=== PATIENT | female | born 1940 | race Two or more races ===

== ENCOUNTER 2017-07-16 08:53 | Outpatient (CLI) | payer OTHER ==
[~2017-07-16] VITALS: Ht 152.4 cm; Wt 67.6 kg
[~2017-07-16 08:53] MED LIST: DOLOGEN CAPLET1 EACH PO; NORVASC5 MG; PRINIVIL5 MG; SYNTHROID100 MCG
== END 2017-07-16 09:15 | disposition home or self-care (01) ==
LOC: OFIC 805 08:53
DX: J34.2 Deviated nasal septum (principal); J31.0 Chronic rhinitis; J34.3 Hypertrophy of nasal turbinates; H93.13 Tinnitus, bilateral

== ENCOUNTER 2019-06-23 09:31 | Outpatient (CLI) | payer OTHER | END 2019-06-23 09:35 | disposition home or self-care (01) | LOC: SONOGRAMA 09:31 → MAMO-SONO 09:45 | DX: M25.511 Pain in right shoulder (principal) ==

== ENCOUNTER 2019-07-03 11:59 | Outpatient (CLI) | payer OTHER | END 2019-07-04 15:43 | disposition home or self-care (01) | LOC: MAMO-SONO 11:59 | DX: Z12.31 Encounter for screening mammogram for malignant neoplasm of breast (principal); Z87.898 Personal history of other specified conditions; N64.4 Mastodynia; N63.10 Unspecified lump in the right breast, unspecified quadrant; N63.20 Unspecified lump in the left breast, unspecified quadrant ==

== ENCOUNTER 2019-07-03 12:39 | Outpatient (CLI) | payer OTHER | END 2019-07-03 13:20 | disposition home or self-care (01) | LOC: NUCLEAR 12:39 | DX: M81.0 Age-related osteoporosis without current pathological fracture (principal); Z13.820 Encounter for screening for osteoporosis ==

== ENCOUNTER 2024-03-14 21:46 | Inpatient (IN) | payer OTHER ==
[~2024-03-14] VITALS: Ht 152.4 cm; Wt 63.5 kg
[~2024-03-14 21:46] MED LIST changes: +ATORVASTATIN CA20 MG PO; +BACTRIM DS TAB1 EACH PO; +BENICAR5 MG PO; +CAROSPIR25 MG/5 ML PO; +DOLOGESIC-DF 51 EACH PO; +ELIQUIS5 MG PO; +FUROSEMIDE20 MG PO; +GLIMEPIRIDE4 M1 PO; +PEPCID AC20 MG PO; +PROTONIX40 MG PO; +SYNTHROID150 MCG PO
[2024-03-15] MEDS ORDERED: MEPERIDINE HCL 25 MG/ML AMPUL IM STA (00:24)
[2024-03-15] MEDS ORDERED: FAMOTIDINE/PF 20 MG/2 ML VIAL IV PUSH STA (00:24)
[2024-03-15] MEDS ORDERED: 0.9 % SODIUM CHLORIDE 1,000 ML IV STA (00:25)
[2024-03-15 01:18] LABS: HEMATOCRIT 44.3 % (36.0-45.00); HEMOGLOBIN 15.1 g/dL (12.0-15.00); MEAN CELL VOLUME 88.9 fL (80.00-100.00); MEAN CORPUSCULAR HEMOGLOBIN 30.4 pg (27.00-32.0); MEAN CORPUSCULAR HGB CONC 34.2 g/dl (32.0-36.0); PLATELET COUNT 296 K/uL (150-450); RED BLOOD COUNT 4.98 M/uL (4.00-6.00); RED CELL DISTRIBUTION WIDTH 14.8 % (11.5-14.5)
[2024-03-15 01:35] LABS: PH,URINE 6.5 (5.0-8.0); URINE APPEARANCE Clear; URINE BILIRRUBIN Negative (NEGATIVE); URINE BLOOD Negative; URINE COLOR Yellow; URINE GLUCOSE Negative (NEGATIVE); URINE KETONE Negative (NEGATIVE); URINE LEUKOCYTE Moderate; URINE NITRATE Negative; URINE PROTEIN Negative (NEGATIVE)
[2024-03-15 01:39] LABS: URINE BACTERIA 89.4 uL (0.0-1933); URINE RBC 2.7 uL (0.0-20.8)
[2024-03-15 01:45] LABS: INR 1.08; PARTIAL THROMBOPLASTIN TIME 26.1 SECONDS (22.0-34.0); PROTHROMBIN TIME 11.7 SECONDS (9.0-11.5)
[2024-03-15 01:49] LABS: ALBUMIN 4.1 gm/dL (3.4-5.0); BILIRUBIN TOTAL 2.53 mg/dL (0.3-1.2); BILIRUBIN,CONJUGATED 1.93 mg/dL (0.0-0.2); BILIRUBIN,UNCONJUGATED 0.6 mg/dL (0.0-0.6); CALCIUM 10.5 mg/dL (8.5-10.1); CREATININE SERUM 1.13 mg/dL (0.55-1.02); GFR 45.87; GLOBULINA 4.4 G/DL (2.4-3.5); POTASSIUM 4.04 mEq/L (3.5-5.1); TOTAL PROTEIN 8.5 gm/dL (6.4-8.2)
[2024-03-15] MEDS ORDERED: CEFTRIAXONE SODIUM 1,000 MG VIAL IV STA (04:17)
[2024-03-15] MEDS ORDERED: DEXTROSE 50 % IN WATER 0.5 G/ML DISP.SYRIN IV PRN (13:30)
[2024-03-15] MEDS ORDERED: INSULIN LISPRO 1,000 UNIT/10 ML UNITS SUBCUTANEO PRN (13:30)
[2024-03-15] MEDS ORDERED: MORPHINE SULFATE 2 MG/ML CARTRIDGE IV PRN (13:30)
[2024-03-15] MEDS ORDERED: 0.9 % SODIUM CHLORIDE 1,000 ML IV SCH (13:30)
[2024-03-15] MEDS ORDERED: LOSARTAN POTASSIUM 50 MG TABLET PO SCH (13:45)
[2024-03-15] MEDS ORDERED: APIXABAN 5 MG TABLET PO SCH ×2 (13:46→17:00)
[2024-03-15] MEDS ORDERED: PIPERACILLIN/TAZOBACTAM SODIUM 3.375 GM in 0.9 % SODIUM CHLORIDE 100 ML IV SCH (14:00)
[2024-03-15] MEDS ORDERED: ONDANSETRON HCL 4 MG in 0.9 % SODIUM CHLORIDE 50 ML IV PRN (14:00)
[2024-03-15 15:54] LABS: HEMATOCRIT 46.6 % (36.0-45.00); HEMOGLOBIN 15.3 g/dL (12.0-15.00); MEAN CELL VOLUME 91.3 fL (80.00-100.00); MEAN CORPUSCULAR HEMOGLOBIN 29.9 pg (27.00-32.0); MEAN CORPUSCULAR HGB CONC 32.7 g/dl (32.0-36.0); PLATELET COUNT 280 K/uL (150-450)
[2024-03-15 15:55] LABS: ERYTHROCYTE SEDIMENTATION RATE 44 mm/hr
[2024-03-15 16:08] LABS: INR 1.06; PARTIAL THROMBOPLASTIN TIME 26.7 SECONDS (22.0-34.0); PROTHROMBIN TIME 11.5 SECONDS (9.0-11.5)
[2024-03-15 16:20] LABS: ALBUMIN 4.2 gm/dL (3.4-5.0); BILIRUBIN TOTAL 1.1 mg/dL (0.3-1.2); BILIRUBIN,CONJUGATED 0.65 mg/dL (0.0-0.2); BILIRUBIN,UNCONJUGATED 0.45 mg/dL (0.0-0.6)
[2024-03-15 16:21] LABS: C-REACTIVE PROTEIN 0.66 MG/DL (0.00-0.29)
[2024-03-15] MEDS ORDERED: FAMOTIDINE/PF 20 MG in 0.9 % SODIUM CHLORIDE 100 ML IV SCH (17:00)
[2024-03-15 22:25] VITALS: BP 160/70
[2024-03-16 02:56] VITALS: BP 123/66
[2024-03-16 09:04] VITALS: BP 139/62
[2024-03-16 17:51] VITALS: BP 150/80
[2024-03-17 01:15] LABS: ALBUMIN 3.7 gm/dL (3.4-5.0); BILIRUBIN TOTAL 1.12 mg/dL (0.3-1.2); BILIRUBIN,CONJUGATED 0.54 mg/dL (0.0-0.2); BILIRUBIN,UNCONJUGATED 0.58 mg/dL (0.0-0.6); CALCIUM 9.3 mg/dL (8.5-10.1); CREATININE SERUM 0.79 mg/dL (0.55-1.02); GFR 69.33; MAGNESIUM 2.2 mg/dL (1.8-2.4); PHOSPHOROUS 2.7 mg/dL (2.5-4.9); POTASSIUM 5.33 mEq/L (3.5-5.1); TOTAL PROTEIN 7.4 gm/dL (6.4-8.2)
[2024-03-17 02:31] VITALS: BP 154/75
[2024-03-17 17:36] VITALS: BP 188/70
[2024-03-18 03:10] VITALS: BP 130/66
[2024-03-18 08:14] LABS: ALBUMIN 3.2 gm/dL (3.4-5.0); BILIRUBIN TOTAL 0.76 mg/dL (0.3-1.2); CALCIUM 8.8 mg/dL (8.5-10.1); CREATININE SERUM 0.64 mg/dL (0.55-1.02); GFR 88.41; POTASSIUM 4.16 mEq/L (3.5-5.1); TOTAL PROTEIN 6.2 gm/dL (6.4-8.2)
[2024-03-18 09:22] VITALS: BP 149/65; O2SAT 99
[2024-03-18 16:06] VITALS: BP 134/70; O2SAT 93
[2024-03-19 01:55] VITALS: BP 111/67; O2SAT 96
[2024-03-19 09:10] VITALS: BP 133/73; O2SAT 97
[2024-03-19 16:19] VITALS: BP 169/66; O2SAT 97
[2024-03-19] MEDS ORDERED: LACTOBACILLUS ACIDOPHILUS 1 CAP CAP PO SCH (21:18)
[2024-03-20 00:30] VITALS: BP 149/60; O2SAT 97
[2024-03-20] MEDS ORDERED: PATIENTS OWN MEDICATION (MEDICAMENTO EN PISO) PO SCH (06:00)
[2024-03-20] MEDS ORDERED: LEVOTHYROXINE SODIUM 150 MCG TABLET PO SCH (06:00)
[2024-03-20 06:09] LABS: HEMOGLOBIN 13.3 g/dL (12.0-15.00); MEAN CELL VOLUME 89.4 fL (80.00-100.00); MEAN CORPUSCULAR HEMOGLOBIN 30.5 pg (27.00-32.0); MEAN CORPUSCULAR HGB CONC 34.2 g/dl (32.0-36.0); PLATELET COUNT 256 K/uL (150-450); RED BLOOD COUNT 4.36 M/uL (4.00-6.00)
[2024-03-20 06:50] LABS: ALBUMIN 3.4 gm/dL (3.4-5.0); BILIRUBIN TOTAL 0.56 mg/dL (0.3-1.2); CALCIUM 9.1 mg/dL (8.5-10.1); CREATININE SERUM 0.69 mg/dL (0.55-1.02); GFR 81.05; GLOBULINA 3.2 G/DL (2.4-3.5); POTASSIUM 3.89 mEq/L (3.5-5.1); TOTAL PROTEIN 6.6 gm/dL (6.4-8.2)
[2024-03-20 08:22] VITALS: BP 181/78; O2SAT 99
[2024-03-20 16:37] VITALS: BP 160/85; O2SAT 97
[2024-03-20] MEDS ORDERED: INTESTINEX680 M1 PO (17:22)
[2024-03-20] MEDS ORDERED: FAMOTIDINE40 MG PO (17:22)
== END 2024-03-20 20:54 | disposition left against medical advice (07) | DRG 445 ==
LOC: ER 21:46 → MEDJ 03-15 13:53 → MEDI 03-15 13:53
PROVIDERS: General Practice; Internal Medicine; ADMIT Internal Medicine; ATTEND Internal Medicine
PROC: BW21YZZ Computerized Tomography (CT Scan) of Abdomen and Pelvis using Other Contrast (ICD-10-PCS; 2024-03-15)
PROC: BW40ZZZ Ultrasonography of Abdomen (ICD-10-PCS; 2024-03-15)
PROC: BF37ZZZ Magnetic Resonance Imaging (MRI) of Pancreas (ICD-10-PCS; 2024-03-15)
PROC: B246ZZZ Ultrasonography of Right and Left Heart (ICD-10-PCS; 2024-03-16)
PROC: 0DB78ZX Excision of Stomach, Pylorus, Via Natural or Artificial Opening Endoscopic, Diagnostic (ICD-10-PCS; 2024-03-17)
PROC: BF4CZZZ Ultrasonography of Hepatobiliary System, All (ICD-10-PCS; 2024-03-17)
PROC: BF37ZZZ Magnetic Resonance Imaging (MRI) of Pancreas (ICD-10-PCS; 2024-03-17)
PROC: BF37YZZ Magnetic Resonance Imaging (MRI) of Pancreas using Other Contrast (ICD-10-PCS; 2024-03-17)
PROC: 0DB68ZX Excision of Stomach, Via Natural or Artificial Opening Endoscopic, Diagnostic (ICD-10-PCS; principal; 2024-03-17 07:00)
DX: K83.09 Other cholangitis (principal); I48.20 Chronic atrial fibrillation, unspecified; K31.89 Other diseases of stomach and duodenum; E80.6 Other disorders of bilirubin metabolism; R74.01 Elevation of levels of liver transaminase levels; I11.9 Hypertensive heart disease without heart failure; E11.9 Type 2 diabetes mellitus without complications; E03.9 Hypothyroidism, unspecified; Z79.01 Long term (current) use of anticoagulants; Z79.84 Long term (current) use of oral hypoglycemic drugs
CPT/HCPCS: 74182

== ENCOUNTER 2024-04-16 12:01 | Emergency (ER) | payer OTHER ==
[~2024-04-16] VITALS: Ht 157.5 cm; Wt 81.6 kg
[~2024-04-16 12:01] MED LIST changes: +FAMOTIDINE40 MG PO; +INTESTINEX680 M1 PO
[2024-04-16] MEDS ORDERED: PIPERACILLIN/TAZOBACTAM SODIUM 3.375 GM VIAL IV ONE (13:15)
[2024-04-16] MEDS ORDERED: 0.9 % SODIUM CHLORIDE 1,000 ML IV ONE (13:15)
[2024-04-16] MEDS ORDERED: FAMOtidine 10 MG/ML (4ML VIAL) IV ONE (13:15)
[2024-04-16] MEDS ORDERED: MAGNESIUM SULFATE IN WATER 2 GM/50 ML PIGGYBAG IV ONE (13:15)
[2024-04-16] MEDS ORDERED: LEVALBUTEROL HCL 1.25 MG/3 ML SOLUTION IH ONE (13:15)
[2024-04-16] MEDS ORDERED: IPRATROPIUM BROMIDE 0.5 MG/2.5 ML AMPUL.NEB IH ONE (13:15)
[2024-04-16 13:45] LABS: ABG PH 7.437 (7.35-7.45); ABG PO2 69.4 mmHg (80-100); ABG pCO2 36.4 mmHg (35-45); BASE EXCESS 0.2 mmol/l; SaO2 94.3 %; Tco2 25.1 mmol/l; allen test SATISFACTORY; o2 21 %; puncture site RADIAL LEFT
[2024-04-16 14:06] LABS: HEMATOCRIT 44.5 % (36.0-45.00); HEMOGLOBIN 14.7 g/dL (12.0-15.00); MEAN CELL VOLUME 91.4 fL (80.00-100.00); MEAN CORPUSCULAR HEMOGLOBIN 30.2 pg (27.00-32.0); PLATELET COUNT 272 K/uL (150-450); RED BLOOD COUNT 4.87 M/uL (4.00-6.00); RED CELL DISTRIBUTION WIDTH 14.3 % (11.5-14.5)
[2024-04-16 14:20] LABS: ALBUMIN 3.8 gm/dL (3.4-5.0); ALKALINE PHOSPHATASE 98 U/L (50-136); ALT/SGPT 22 U/L (12-78); ANION GAP 9 (10.0-20.0); AST/SGOT 25 U/L (15-37); BILIRUBIN TOTAL 0.66 mg/dL (0.3-1.2); BLOOD UREA NITROGEN 16 mg/dL (7-18); BUN CREA RATIO 16 (7.0-25.0); CALCIUM 9.9 mg/dL (8.5-10.1); CARBON DIOXIDE 27 mEq/L (21-32); CHLORIDE 109 mmol/L (98-107); CREATININE SERUM 1.03 mg/dL (0.55-1.02); GFR 51.05; GLOBULINA 4.4 G/DL (2.4-3.5); GLUCOSE FASTING 132 mg/dL (65-100); LDH 221 U/L (84-246); OSMOLALITY SERUM 284 MOSM/KG (275-295); POTASSIUM 3.87 mEq/L (3.5-5.1); SODIUM 141 mmol/L (136-145); TOTAL PROTEIN 8.2 gm/dL (6.4-8.2)
[2024-04-16 14:21] LABS: C-REACTIVE PROTEIN < 0.29 MG/DL (0.00-0.29)
[2024-04-16 14:28] LABS: INR 1.15; PROTHROMBIN TIME 12.4 SECONDS (9.0-11.5)
[2024-04-16 14:46] LABS: ERYTHROCYTE SEDIMENTATION RATE 40 mm/hr
[2024-04-16 15:22] LABS: PH,URINE 7.5 (5.0-8.0); URINE APPEARANCE Clear; URINE BILIRRUBIN Negative (NEGATIVE); URINE BLOOD Negative; URINE COLOR Yellow; URINE GLUCOSE Negative (NEGATIVE); URINE KETONE Negative (NEGATIVE); URINE LEUKOCYTE Small; URINE NITRATE Negative; URINE PROTEIN Negative (NEGATIVE); URINE UROBILINOGEN 0.2 E.U./dl
[2024-04-16 15:26] LABS: URINE BACTERIA 25.6 uL (0.0-1933); URINE EPITHELIAL CELLS 8.2 uL (0.0-38.8); URINE RBC 2.2 uL (0.0-20.8); URINE WBC 11.7 uL (0.0-23.2)
[2024-04-16 15:32] LABS: URINE CAST 0.14 uL (0.0-1.40)
[2024-04-16 15:43] LABS: D DIMER 0.23 MG/L; PARTIAL THROMBOPLASTIN TIME 29.7 SECONDS (22.0-34.0)
== END 2024-04-16 18:29 | disposition home or self-care (01) ==
LOC: ER 12:01
PROVIDERS: General Practice
DX: R53.81 Other malaise (principal); J06.9 Acute upper respiratory infection, unspecified; R06.02 Shortness of breath; I10 Essential (primary) hypertension; E03.8 Other specified hypothyroidism; E11.9 Type 2 diabetes mellitus without complications; Z79.4 Long term (current) use of insulin; Z88.1 Allergy status to other antibiotic agents
CPT/HCPCS: 36415; 71260; 82803; 93005; 94640; 96365; 96366; 99284; J2543; J3475; J3490; J7030; Q9965